=== PATIENT | female | born 1975 | race African-American/Black ===

== ENCOUNTER 2022-10-24 08:48 | Emergency (ER) | payer SELFPAY ==
[~2022-10-24] VITALS: Ht 162.6 cm; Wt 89.0 kg
[2022-10-24 08:55] VITALS: BP 153/98; PULSE 92; RESP 20; TEMP 98.7; O2SAT 96
[2022-10-24] MEDS ORDERED: ALBU6.7H3 INH (11:18)
[2022-10-24] MEDS ORDERED: GUAI600T26 MT (11:18)
[2022-10-24] MEDS ORDERED: ACET-2708 MT (11:18)
== END 2022-10-24 11:31 | disposition home or self-care (01) ==
LOC: ER 08:48
DX: U07.1 COVID-19 (principal); J02.9 Acute pharyngitis, unspecified
CPT/HCPCS: 99283; 87426; 81025; 87430; 87070; C9803

== ENCOUNTER 2024-11-14 18:40 | Emergency (ER) | payer SELFPAY ==
[~2024-11-14] VITALS: Ht 162.6 cm; Wt 76.0 kg
[~2024-11-14 18:40] MED LIST: ACET-2708 MT; ALBU6.7H3 INH; GUAI600T26 MT
[2024-11-14 18:52] VITALS: O2SAT 98
[2024-11-14 18:59] VITALS: BP 128/74; PULSE 95; RESP 18; TEMP 36.9; O2SAT 100
[2024-11-14] MEDS ORDERED: KETOROLAC 15MG/ML VIAL IM ONE (21:45)
== END 2024-11-14 22:23 | disposition left against medical advice (07) ==
LOC: ER 18:40
DX: R09.81 Nasal congestion (principal); R05.9 Cough, unspecified
CPT/HCPCS: 99282